=== PATIENT | female | born 1945 | race Hispanic/Latino ===

== ENCOUNTER 2017-12-09 11:34 | Inpatient (IN) | payer MEDICARE ==
[2017-12-09 13:11] LABS: Bilirubin,Urine NEG (Negative); Blood,Urine SM (Negative); Color,Urine Yellow (Yellow); Mucus,Urine FEW /HPF; Urobilinogen,Urine < 2.0 mg/dL (<2.0)
[2017-12-23] MEDS ORDERED: ANCEF/STERILE WATER 2 GM/20 ML IV NR (00:01)
[2017-12-23] MEDS ORDERED: LACTATED RINGERS 1,000 ML IV SCH (06:00)
[2017-12-23] MEDS ORDERED: VERSED IV NR (06:00)
[2017-12-23] MEDS ORDERED: NACL BACTERIOSTATIC INFILTRATI ONE (06:12)
[2017-12-23] MEDS ORDERED: LOPRESSOR IV ONE (07:30)
[2017-12-23] MEDS ORDERED: ZOFRAN ONE (07:33)
[2017-12-23] MEDS ORDERED: XYLOCAINE MPF 2% ONE (07:33)
[2017-12-23] MEDS ORDERED: ZEMURON IV ONE (07:33)
[2017-12-23] MEDS ORDERED: TORADOL ONE (07:33)
--- NOTE | 2017-12-23 07:33 | Anesthesia Consultation ---
Anesthesia Consult and Med Hx Date of service: 12/23/17 - Airway Anesthetic Teeth Evaluation: Good ROM Head & Neck: Adequate Mental/Hyoid Distance: Adequate Mallampati Class: Class II Intubation Access Assessment: Probably Good - Pre-Operative Health Status ASA Pre-Surgery Classification: ASA2 Proposed Anesthetic Plan: General Nerve Block: Femoral - Pulmonary Hx Smoking: No Hx Sleep Apnea: No (MELISSA PRE SCREEN HIGH RISK) - Cardiovascular System Hx Hypertension: Yes (NO MEDS YET) - Central Nervous System Hx Back Pain: Yes - Endocrine Hx Non-Insulin Dependent Diabetes: Yes (no meds) - Other Systems Hx Cancer: No Hx Obesity: Yes (BMI 33.6)
[2017-12-23] MEDS ORDERED: DIPRIVAN 10 MG/ML IV ONE (07:34)
[2017-12-23] MEDS ORDERED: TRANEXAMIC ACID ONE (07:34)
[2017-12-23] MEDS ORDERED: POLYMYXIN B SULFATE IV ONE ×2 (07:34→09:00)
[2017-12-23] MEDS ORDERED: MARCAINE 0.25% INFILTRATI ONE ×2 (07:34→09:00)
[2017-12-23] MEDS ORDERED: MORPHINE ONE (07:34)
[2017-12-23] MEDS ORDERED: XYLOCAINE 1%/ EPI 1:100,000 INFILTRATI ONE (07:34)
[2017-12-23] MEDS ORDERED: SUBLIMAZE ONE ×2 (07:34→07:53)
--- NOTE | 2017-12-23 07:34 | Anesthesia Day of Surgery ---
Anesthesia Day of Surgery - Day of Surgery Patient Examined: Yes Patient H&P Reviewed: Yes Patient is NPO: Yes
[2017-12-23] MEDS ORDERED: NACL 0.9% 100 ML ONE (07:35)
[2017-12-23] MEDS ORDERED: BACITRACIN ONE (07:35)
[2017-12-23] MEDS ORDERED: CLORPACTIN WCS-90 IR ONE ×2 (07:35→09:00)
[2017-12-23] MEDS ORDERED: NACL 0.9% 500 ML 500 ML ONE (07:35)
[2017-12-23] MEDS ORDERED: PEPCID IV ONE (07:53)
[2017-12-23] MEDS ORDERED: MARCAINE 0.5% 30 ML INFILTRATI ONE (07:54)
[2017-12-23] MEDS ORDERED: ZOFRAN IV PRN ×2 (08:42→11:39)
--- NOTE | 2017-12-23 08:42 | Anesthesia Consultation ---
Anesthesia Consult and Med Hx Date of service: 12/23/17 - Airway Anesthetic Teeth Evaluation: Good ROM Head & Neck: Adequate Mental/Hyoid Distance: Adequate Mallampati Class: Class II Intubation Access Assessment: Probably Good - Pulmonary Exam CTA: Yes - Cardiac Exam Cardiac Exam: RRR - Pre-Operative Health Status ASA Pre-Surgery Classification: ASA3 Proposed Anesthetic Plan: General Nerve Block: Adductor Canal Block - Pulmonary Hx Smoking: No Hx Sleep Apnea: No (MELISSA PRE SCREEN HIGH RISK) - Cardiovascular System Hx Hypertension: Yes (NO MEDS YET) - Central Nervous System Hx Back Pain: Yes - Endocrine Hx Non-Insulin Dependent Diabetes: Yes (no meds) - Other Systems Hx Cancer: No Hx Obesity: Yes (BMI 33.6)
--- NOTE | 2017-12-23 08:42 | Anesthesia Day of Surgery ---
Anesthesia Day of Surgery - Day of Surgery Patient Examined: Yes Patient H&P Reviewed: Yes Patient is NPO: Yes
[2017-12-23] MEDS ORDERED: TRANEXAMIC ACID IV ONE (09:00)
[2017-12-23] MEDS ORDERED: NACL 0.9% 500 ML EKOSCLUMEN ONE (09:00)
[2017-12-23] MEDS ORDERED: WATER FOR IRRIG STERILE IR ONE (09:00)
[2017-12-23] MEDS ORDERED: BACITRACIN IR ONE (09:00)
[2017-12-23] MEDS ORDERED: NACL 0.9% IR ONE ×2 (09:00)
[2017-12-23] MEDS ORDERED: MORPHINE IM ONE (09:00)
[2017-12-23] MEDS ORDERED: TORADOL PO ONE (09:00)
[2017-12-23] MEDS ORDERED: ePHEDrine 50 MG/5 ML-0.9% NACL IV ONE (09:20)
[2017-12-23] MEDS ORDERED: LACTATED RINGERS 1,000 ML ONE (09:48)
[2017-12-23] MEDS ORDERED: ROBINUL ONE (11:04)
[2017-12-23] MEDS ORDERED: BLOXIVERZ ONE (11:04)
[2017-12-23] MEDS ORDERED: PHENERGAN PR PRN (11:39)
[2017-12-23] MEDS ORDERED: MILK OF MAGNESIA PO PRN (11:39)
[2017-12-23] MEDS ORDERED: SODIUM CHLORIDE FLUSH SYRINGE 10 ML IV SCH (12:00)
--- NOTE | 2017-12-23 12:22 | Operative Report ---
SURGEON: Kedar Blackwood MD. SETUP OPERATOR: Bernabe Crawford, operative tech. PREOPERATIVE DIAGNOSES: 1.Severe advanced osteoarthritis, left knee joint. 2.Stiff left knee joint. 3.Flexion deformity 40-45 degree left knee joint. POSTOPERATIVE DIAGNOSES: 1.Severe advanced osteoarthritis, left knee joint. 2.Stiff left knee joint. 3.Flexion deformity 40-45 degree left knee joint. PROCEDURES PERFORMED: 1. Complex total knee replacement, left side. 2. Partial synovectomy, left knee joint. BRIEF HISTORY: The patient had a painful left knee, severe advanced osteoarthritis, significant flexion deformity and contracture about 40-45 degree intraoperatively on examination. The patient opted for total knee replacement on the left side. After listening to all risks, benefit, alternative informed consent obtained, brought to the hospital for the above procedure. DETAILS OF THE OPERATIVE REPORT: The patient was taken to the operating room, smooth general endotracheal anesthesia, all the bony prominences were carefully padded, placed supine on the operating table. Thigh tourniquet was placed. Left knee and left lower extremity prepped and draped in sterile fashion. A longitudinal midline incision made over anterior aspect of the knee. Next, after the necessary timeout was performed. Antibiotic given along with the TXA and Esmarch was used. The longitudinal incision made over anterior aspect of the knee, exposing extensive mechanism. Arthrotomy performed. Patella displaced laterally for gross finding revealed severe advanced degenerative arthritis. Significant osteophytes all round the extraocular osteophytes. Significant flexion contracture of the knee about 40 degree or so to 45 degree. Subperiosteal dissection was continued around the proximal medial tibia given the significant varus deformity she had and contracted medial side. Subperiosteal dissection was continued around the proximal medial tibia and necessary soft tissue release was performed to correct the fixed angular deformity. Extensile approach was made to make sure we have better exposure for which made the procedure little bit more complex; however, osteophytes around the knee was removed and around the patella was removed as well for better exposure. The drill was then used to open the femoral canal. Distal intramedullary femoral cutting guide was placed. Distal femur resected 5 degree valgus angle. Epicondylar access apex was determined. Femoral sizing guide was placed, appropriate components selected. Anteroposterior condyles were then resected with oscillating saw. Extramedullary tibial cutting guide was placed, proximal tibia resected perpendicular to the long axis of tibia and minimum bone resection was performed about 8 mm from the proximal lateral tibia and from the good cartilage. Significant contracture on the medial side was noticed along with significant capsular contracture on the back. The osteophytes and the posterior aspect also were present, which were all taken off from the 3/4 inch curved osteotome and a curette and Bovie. Once the osteophytes on the posterior aspect of the conduit was removed posterior capsule release was performed being on the bone. Medial release was then sequentially performed. Deep MCL, medial capsule, semimembranosus had to be released. Given the significant contracture of the anterior superior aspect of the superficial MCL was released subperiosteally as well, which gave us great balancing. We were able to balance the knee in flexion and extension. We noticed that there was tightness in extension still even after doing a significant capsular release, we had to end up to take 2 mm of distal femur and doing again chamfer cuts with cutting block. We balance the knee. Then, in extension and flexion with 11 spacer we had full extension, full flexion, stable throughout range of motion. The tibia was then prepared by tibial reaming and broach system by placing the tibial tray in proper position, proper external rotation. Femur was then placed. A trial femur was then placed and prepared for the box using Connelly and Nephew trial femur using reaming and punch technique. 9 and 11 poly, we had great stability with 11 poly. We had full extension, full flexion, stable throughout range of motion. Full extension, full flexion, stable throughout range of motion, patella tracking central. Patella was prepared with patellar reaming system prepared for three post-patella. Prepatellar thickness 22 mm. Post-patellar thickness 21.5 mm. Synovium around the patella was excised as well. Thorough washing was performed with antibiotic-soaked normal saline followed by normal saline along with Clorpactin irrigation. After normal saline followed by that we cleaned with normal saline and bone surfaces were dried and the cementing of the knee was performed. Tibia was cemented first, set in proper position, proper external rotation, and packed in place. The excess cement was removed. Femur was then cemented in proper position, proper external rotation and packed in place. Excess cement was removed. Patella was then cemented in proper position, compressed in place. Excess cement was removed. Trial liner was then placed. Once the cement was hardened, real tibial articulating surface was implanted and knee again moved through range of motion, again found to be tracking very well and stable throughout range of motion. Tourniquet released. Hemostasis achieved. No active bleeder as such. Pain cocktail injected into the periarticular tissue around the knee. Arthrotomy closed with #2 Quill suture and 0 Vicryl suture combination. Subcutaneous tissue was closed with 0 and 2-0 Vicryl interrupted sutures. Skin was closed with Monocryl. Aquacel dressing done. Chai wrap applied. The patient tolerated procedure well, shifted to recovery room in stable condition. Sponge and needle count was correct. Knee immobilizer applied. JOB# [id number] CHING/DENVER
[2017-12-23] MEDS: DILAUDID IV PRN ×2 (12:32→12:47)
[2017-12-23] MEDS: TORADOL IV PRN ×2 (15:48→21:31)
[2017-12-23] MEDS: LACTATED RINGERS 1,000 ML IV SCH (15:49)
[2017-12-23] MEDS: ceFAZolin 2 GM in NACL 0.9% 100 ML IV SCH ×2 (15:49→23:36)
[2017-12-23] MEDS: NEURONTIN PO SCH ×2 (15:49→21:31)
--- NOTE | 2017-12-23 17:02 | XRay Report ---
FINAL REPORT PROCEDURE: AP and lateral left knee TECHNIQUE: knee radiographs, AP and lateral views. HISTORY: POSTOP will call COMPARISON: No prior studies are available for comparison. FINDINGS: Total left knee prosthesis in place. Prosthetic components are tightly applied to bone. Alignment appears normal. No fracture is seen. Gas and fluid seen in the suprapatellar bursa consistent with recent surgery. Bones are demineralized suggesting osteoporosis. IMPRESSION: Recent placement total knee prosthesis. Prosthetic components tightly applied to bone. Alignment appears normal.
--- NOTE | 2017-12-23 21:01 | Consultation ---
History of Present Illness - Reason for Consult Consult date: 12/23/17 Medical managent Requesting physician: PENG GONZALES - History of Present Illness S/p L TKA Postop doing well.Pain control adequate.No SOB. at bedside and supporive. Past History Past Medical History: arthritis Past Surgical History: total knee replacement Social history: no significant social history, lives with family, full code Family history: no significant family history Medications and Allergies Allergies Allergy/AdvReac Type Severity Reaction Status Date / Time ciprofloxacin [From Cipro] Allergy Rash Verified 12/07/17 10:01 Home Medications Medication Instructions Recorded Confirmed Last Taken Type Celecoxib [celeBREX] 200 mg PO BID 12/07/17 12/23/17 12/23/17 04:30 History diphenhydrAMINE [Benadryl CAP] 25 mg PO QHS 12/07/17 12/07/17 Unknown History Active Meds: Active Medications Acetaminophen/Hydrocodone Bitart (Mitchell 7.5/325) 1 each PO Q6H PRN PRN Reason: Pain, Moderate (4-6) Aspirin (Aspirin) 325 mg PO BID [facility] Cefazolin Sodium (Ancef/Sterile Water 2 Gm/20 Ml) 2 gm IV PREOP NR Stop: 12/23/17 23:00 Celecoxib (Celebrex) 200 mg PO BID [facility] Last Admin: 12/23/17 15:38 Dose: Not Given Gabapentin (Neurontin) 100 mg PO Q8HR [facility] Last Admin: 12/23/17 15:49 Dose: 100 mg Lactated Ringer's (Lactated Ringers) 1,000 mls @ 100 mls/hr IV DIRECT [facility] Last Admin: 12/23/17 15:49 Dose: 100 mls/hr Cefazolin Sodium 2 gm/ Sodium (Chloride) 100 mls @ 200 mls/hr IV Q8H ADARSH Stop: 12/24/17 08:29 Last Admin: 12/23/17 15:49 Dose: 200 mls/hr Ketorolac Tromethamine (Toradol) 15 mg IV Q6H PRN PRN Reason: Pain, Mild (1-3) Last Admin: 12/23/17 15:48 Dose: 15 mg Magnesium Hydroxide (Milk Of Magnesia) 30 ml PO Q4H PRN PRN Reason: Constipation Midazolam HCl (Versed) 2 mg IV PREOP NR Stop: 12/23/17 23:59 Last Admin: 12/23/17 07:58 Dose: 2 mg Ondansetron HCl (Zofran) 4 mg IV Q8H PRN PRN Reason: Nausea And Vomiting Promethazine HCl (Phenergan) 25 mg NH Q6H PRN PRN Reason: Nausea And Vomiting Sodium Chloride (Sodium Chloride Flush Syringe 10 Ml) 10 ml IV PRN ADARSH Review of Systems All systems: negative Exam - Physical Exam Narrative exam: Lying in bed comfortably - Constitutional Vitals: Temp Pulse Resp BP Pulse Ox 98.3 F 82 22 141/77 97 12/23/17 20:53 12/23/17 20:53 12/23/17 20:53 12/23/17 20:53 12/23/17 20:53 General appearance: Present: no acute distress, well-nourished - EENT Eyes: Present: PERRL ENT: hearing intact, clear oral mucosa - Neck Neck: Present: supple, normal ROM - Respiratory Respiratory effort: normal Respiratory: bilateral: CTA - Cardiovascular Heart rate: 78 Rhythm: regular Heart Sounds: Present: S1 & S2. Absent: rub, click - Extremities Extremities: pulses symmetrical, No edema Peripheral Pulses: within normal limits - Abdominal General gastrointestinal: Present: soft, non-tender, non-distended, normal bowel sounds Female genitourinary: Present: normal - Integumentary Integumentary: Present: clear, warm, dry - Musculoskeletal Musculoskeletal: gait normal, strength equal bilaterally - Psychiatric Psychiatric: appropriate mood/affect, intact judgment & insight - Neurologic Neurologic: CNII-XII intact, moves all extremities - Allied Health Allied health notes reviewed: nursing, case management Assessment and Plan - Patient Problems (1) S/P total knee arthroplasty Current Visit: Yes Status: Acute Qualifiers: Laterality: left Qualified Code(s): Z96.652 - Presence of left artificial knee joint Plan to address problem: Cont PT and Pain control (2) Osteoarthritis Current Visit: Yes Status: Chronic Qualifiers: Osteoarthritis location: knee Laterality: bilateral Plan to address problem: Cont Celecoxib (3) DVT prophylaxis Current Visit: Yes Status: Acute Plan to address problem: On SCD's and ASA 325 qd (4) Discharge planning issues Current Visit: Yes Status: Acute Plan to address problem: Possible discharge on 12/25/17 by Hospitalist team if ok with Dr Davila formerly [facility] and CPT machine ordered
[2017-12-23] MEDS: ASPIRIN PO SCH (21:31)
[2017-12-24] MEDS: TORADOL IV PRN ×2 (03:21→09:40)
[2017-12-24] MEDS: LACTATED RINGERS 1,000 ML IV SCH ×2 (03:23→21:33)
[2017-12-24] MEDS: NORCO 7.5/325 PO PRN ×3 (06:13→21:34)
[2017-12-24] MEDS: NEURONTIN PO SCH ×3 (06:14→21:35)
[2017-12-24 07:52] LABS: Basophils # (Auto) 0.1 K/mm3 (0.0-0.1); Basophils % (Auto) 0.6 % (0.0-1.8); Eosinophils # (Auto) 0.1 K/mm3 (0.0-0.4); Hematocrit 34.8 % (30.3-42.9); Hemoglobin 11.6 gm/dl (10.1-14.3); Lymphocytes % (Auto) 10.9 % (13.4-35.0); Mean Corpuscular HGB Conc 33 % (30-34); Mean Corpuscular Hemoglobin 29 pg (28-32); Mean Corpuscular Volume 86 fl (79-97); Monocytes # (Auto) 0.8 K/mm3 (0.0-0.8); Monocytes % (Auto) 8.7 % (0.0-7.3); Platelet Count 166 K/mm3 (140-440); Red Blood Count 4.06 M/mm3 (3.65-5.03); Red Cell Distribution Width 14.4 % (13.2-15.2)
[2017-12-24 08:11] LABS: Alanine Aminotransferase 7 units/L (7-56); Albumin 2.9 g/dL (3.9-5); BUN/Creatinine Ratio 14; Blood Urea Nitrogen 7 mg/dL (7-17); Calcium 8.1 mg/dL (8.4-10.2); Hemolysis Index 11
[2017-12-24] MEDS: ASPIRIN PO SCH ×2 (09:34→21:34)
--- NOTE | 2017-12-24 11:59 | Progress Note ---
Assessment and Plan Assessment and plan: --Status post total knee arthroplasty left Continue postop care, pain management Physical therapy occupational therapy, Rehabilitation --Sinus drainage and congestion; Claritin/Zyrtec when necessary --History of severe osteoarthritis Continue anti-inflammatories and pain medications --DVT prophylaxis; SCDs, aspirin 325 mg by mouth twice a day --Moderate to Severe malnutrition; patient nutrition supplements and supportive care --Obesity; BMI 33.6, counseling diet modification and exercise as tolerated and weight reduction when medically stable --DC planning per case management Home with home health versus rehabilitation Follow PT OT evaluation and recommendations Possible discharge in 1-2 days if stable Plan of care reviewed with the patient, family members at the bedside as well as the nurse History Interval history: Patient seen and examined medical records reviewed Feels better no new complaints Vital signs reviewed, stable Tolerating physical therapy complaints of mild sinus drainage Alert awake oriented 3 not in acute distress Vital signs reviewed Hospitalist Physical - Constitutional Vitals: Temp Pulse Resp BP Pulse Ox 98.5 F 82 18 108/48 94 12/24/17 08:31 12/24/17 08:31 12/24/17 08:31 12/24/17 08:31 12/24/17 08:31 General appearance: Present: no acute distress, well-nourished - EENT Eyes: Present: PERRL, EOM intact - Neck Neck: Present: supple, normal ROM - Respiratory Respiratory effort: normal Respiratory: bilateral: diminished, negative: rales, rhonchi, wheezing - Cardiovascular Rhythm: regular Heart Sounds: Present: S1 & S2 - Extremities Extremities: no ischemia, No edema Peripheral Pulses: within normal limits - Abdominal General gastrointestinal: soft, non-tender, non-distended - Integumentary Integumentary: Present: clear, warm - Psychiatric Psychiatric: appropriate mood/affect, cooperative - Neurologic Neurologic: CNII-XII intact, moves all extremities Results - Labs CBC & Chem 7: 12/24/17 07:01 12/24/17 07:01 Labs: Laboratory Last Values WBC 9.0 K/mm3 (4.5-11.0) 12/24/17 07:01 RBC 4.06 M/mm3 (3.65-5.03) 12/24/17 07:01 Hgb 11.6 gm/dl (10.1-14.3) 12/24/17 07:01 Hct 34.8 % (30.3-42.9) 12/24/17 07:01 MCV 86 fl (79-97) 12/24/17 07:01 MCH 29 pg (28-32) 12/24/17 07:01 MCHC 33 % (30-34) 12/24/17 07:01 RDW 14.4 % (13.2-15.2) 12/24/17 07:01 Plt Count 166 K/mm3 (140-440) 12/24/17 07:01 Lymph % (Auto) 10.9 % (13.4-35.0) L 12/24/17 07:01 Meagher % (Auto) 8.7 % (0.0-7.3) H 12/24/17 07:01 Eos % (Auto) 1.0 % (0.0-4.3) 12/24/17 07:01 Baso % (Auto) 0.6 % (0.0-1.8) 12/24/17 07:01 Lymph # 1.0 K/mm3 (1.2-5.4) L 12/24/17 07:01 Meagher # 0.8 K/mm3 (0.0-0.8) 12/24/17 07:01 Eos # 0.1 K/mm3 (0.0-0.4) 12/24/17 07:01 Baso # 0.1 K/mm3 (0.0-0.1) 12/24/17 07:01 Seg Neutrophils % 78.8 % (40.0-70.0) H 12/24/17 07:01 Seg Neutrophils # 7.1 K/mm3 (1.8-7.7) 12/24/17 07:01 Sodium 137 mmol/L (137-145) 12/24/17 07:01 Potassium 3.8 mmol/L (3.6-5.0) 12/24/17 07:01 Chloride 100.8 mmol/L (98-107) 12/24/17 07:01 Carbon Dioxide 25 mmol/L (22-30) 12/24/17 07:01 Anion Gap 15 mmol/L 12/24/17 07:01 BUN 7 mg/dL (7-17) 12/24/17 07:01 Creatinine 0.5 mg/dL (0.7-1.2) L 12/24/17 07:01 Estimated GFR > 60 ml/min 12/24/17 07:01 BUN/Creatinine Ratio 14 % 12/24/17 07:01 Glucose 187 mg/dL (65-100) H 12/24/17 07:01 Calcium 8.1 mg/dL (8.4-10.2) L 12/24/17 07:01 Total Bilirubin 0.80 mg/dL (0.1-1.2) 12/24/17 07:01 AST 11 units/L (5-40) 12/24/17 07:01 ALT 7 units/L (7-56) 12/24/17 07:01 Alkaline Phosphatase 78 units/L (35-129) 12/24/17 07:01 Total Protein 5.7 g/dL (6.3-8.2) L 12/24/17 07:01 Albumin 2.9 g/dL (3.9-5) L 12/24/17 07:01 Albumin/Globulin Ratio 1.0 % 12/24/17 07:01 Urine Color Yellow (Yellow) 12/09/17 12:20 Urine Turbidity Clear (Clear) 12/09/17 12:20 Urine pH 5.0 (5.0-7.0) 12/09/17 12:20 Ur Specific Amasa 1.017 (1.003-1.030) 12/09/17 12:20 Urine Protein 30 mg/dl mg/dL (Negative) 12/09/17 12:20 Urine Glucose (UA) 150 mg/dL (Negative) 12/09/17 12:20 Urine Ketones Neg mg/dL (Negative) 12/09/17 12:20 Urine Blood Sm (Negative) 12/09/17 12:20 Urine Nitrite Neg (Negative) 12/09/17 12:20 Urine Bilirubin Neg (Negative) 12/09/17 12:20 Urine Urobilinogen < 2.0 mg/dL (<2.0) 12/09/17 12:20 Ur Leukocyte Esterase Neg (Negative) 12/09/17 12:20 Urine WBC (Auto) 2.0 /HPF (0.0-6.0) 12/09/17 12:20 Urine RBC (Auto) 1.0 /HPF (0.0-6.0) 12/09/17 12:20 U Epithel Cells (Auto) 2.0 /HPF (0-13.0) 12/09/17 12:20 Urine Mucus Few /HPF 12/09/17 12:20 Blood Type B POSITIVE 12/23/17 07:00 Antibody Screen Negative 12/23/17 07:00
[2017-12-24] MEDS: ceFAZolin 2 GM in NACL 0.9% 100 ML IV SCH (13:35)
--- NOTE | 2017-12-24 16:09 | Progress Note ---
Subjective Date of service: 12/24/17 Interval history: pod1, s/p tka left doing well, no complaints AVSS, NVI dressing dry pain under control DC and knee instructions given patoent infomred to keep ppillow under knee at all times unless she is bending the knee Dc planning home health Objective Vital signs: Vital Signs - 12hr 12/24/17 12/24/17 12/24/17 05:09 05:10 05:11 Temperature 99.5 F Pulse Rate 87 88 90 Respiratory 18 Rate Blood Pressure 131/50 O2 Sat by Pulse 96 95 96 Oximetry 12/24/17 12/24/17 08:31 12:00 Temperature 98.5 F 99.4 F Pulse Rate 82 91 H Respiratory 18 18 Rate Blood Pressure 108/48 130/67 O2 Sat by Pulse 94 98 Oximetry - Labs CBC & BMP: 12/24/17 07:01 12/24/17 07:01 Labs: Abnormal lab results 12/24/17 12/24/17 Range/Units 07:01 07:01 Lymph % (Auto) 10.9 L (13.4-35.0) % Antelope % (Auto) 8.7 H (0.0-7.3) % Lymph # 1.0 L (1.2-5.4) K/mm3 Seg Neutrophils % 78.8 H (40.0-70.0) % Creatinine 0.5 L (0.7-1.2) mg/dL Glucose 187 H (65-100) mg/dL Calcium 8.1 L (8.4-10.2) mg/dL Total Protein 5.7 L (6.3-8.2) g/dL Albumin 2.9 L (3.9-5) g/dL
[2017-12-25] MEDS: NORCO 7.5/325 PO PRN ×2 (05:58→11:55)
[2017-12-25] MEDS: NEURONTIN PO SCH ×2 (05:59→15:14)
[2017-12-25 06:25] VITALS: BP 137/67
--- NOTE | 2017-12-25 11:43 | Discharge Summary ---
Providers - Providers Date of Admission: 12/23/17 06:27 Date of discharge: 12/25/17 Attending physician: DEDE SWEET 12/23/17 11:39 Consult to Case Management [CONS] Routine Services Needed at Discharge: Gutter Installer Home Health Services DME Equipment Physical Therapy Notified:: CASE MANAGEMENT Consult to Physician [CONS] Routine Comment: COMPLETED - IVONE Consulting Provider: KERRI HOLT Physician Instructions: Reason For Exam: postop TKA AND MEDICAL MANAGEMENT Occupational Therapy Evaluate and Treat [CONS] Routine Comment: Reason For Exam: POSTOP TKA 12/23/17 11:40 Physical Therapy Evaluation and Treat [CONS] Routine Comment: Reason For Exam: POSTOP TKA 12/24/17 07:20 Consult to Case Management [CONS] Routine Services Needed at Discharge: Home Health Services Notified:: PROFESSOR OF LANGUAGES 12/24/17 07:22 Consult to Case Management [CONS] Routine Services Needed at Discharge: Home Health Services Physical Therapy Notified:: PROFESSOR OF LANGUAGEScritical care paramedic physician: NINA VIDALES Hospitalization Condition: Good Hospital course: --Status post total knee arthroplasty left Continue postop care, pain management Physical therapy occupational therapy, Rehabilitation --Sinus drainage and congestion; Claritin/Zyrtec when necessary --History of severe osteoarthritis Continue anti-inflammatories and pain medications --DVT prophylaxis; SCDs, aspirin 325 mg by mouth twice a day --Moderate to Severe malnutrition; patient nutrition supplements and supportive care --Obesity; BMI 33.6, counseling diet modification and exercise as tolerated and weight reduction when medically stable Disposition: [id number]-06 HOME UNDER HOME [facility] Time spent for discharge: 33 min Core Measure Documentation - Palliative Care Palliative Care/ Comfort Measures: Not Applicable - Core Measures Any of the following diagnoses?: none Exam - Constitutional Vitals: Temp Pulse Resp BP Pulse Ox 98.6 F 94 H 20 137/67 97 12/25/17 04:42 12/25/17 04:42 12/25/17 04:42 12/25/17 04:42 12/25/17 04:42 General appearance: Present: no acute distress, well-nourished, obese - EENT Eyes: Present: PERRL, EOM intact - Neck Neck: Present: supple, normal ROM - Respiratory Respiratory effort: normal Respiratory: bilateral: diminished, negative: rales, rhonchi, wheezing - Cardiovascular Rhythm: regular Heart Sounds: Present: S1 & S2 - Extremities Extremities: no ischemia, No edema - Abdominal General gastrointestinal: Present: soft, non-tender, non-distended, normal bowel sounds - Integumentary Integumentary: Present: clear, warm - Musculoskeletal Musculoskeletal: strength equal bilaterally - Psychiatric Psychiatric: appropriate mood/affect, cooperative Plan Activity: advance as tolerated, fall precautions Diet: regular Special Instructions: physical therapy, occupational therapy Additional Instructions: fall precautions Follow up with: NINA VIDALES MD [Primary Care Provider] - 7 Days PENG GONZALES MD [Staff Physician] - 7 Days Prescriptions: HYDROcodone/APAP 7.5-325 [[place] 7.5-325 mg TAB] 1 each PO BID PRN #10 tablet PRN Reason: Pain, Moderate (4-6)
[2017-12-25] MEDS: ASPIRIN PO SCH (11:54)
== END 2017-12-25 15:10 | disposition home health service (06) | DRG 469 ==
LOC: 3A 12-23 06:27 → 3B-SURG 12-23 15:06
PROVIDERS: ADMIT Orthopaedic Surgery; ATTEND Internal Medicine
PROC: 0SRD0J9 Replacement of Left Knee Joint with Synthetic Substitute, Cemented, Open Approach (ICD-10-PCS; principal; 2017-12-23)
PROC: 0SBD0ZZ Excision of Left Knee Joint, Open Approach (ICD-10-PCS; 2017-12-23)
DX: M17.12 Unilateral primary osteoarthritis, left knee (principal); E43 Unspecified severe protein-calorie malnutrition; I10 Essential (primary) hypertension; E11.9 Type 2 diabetes mellitus without complications; E66.9 Obesity, unspecified; J34.89 Other specified disorders of nose and nasal sinuses; M21.262 Flexion deformity, left knee; Z68.33 Body mass index [BMI] 33.0-33.9, adult; Z83.3 Family history of diabetes mellitus; Z82.49 Family history of ischemic heart disease and other diseases of the circulatory system; Z88.1 Allergy status to other antibiotic agents
CPT/HCPCS: 36415; 64450; 80053; 81001; 85025; 86850; 86900; 86901; 87086; 87116; 88304; 88311; 94760; A4217; C1713; C1776; G8987-GO; G8988-GO; J0690; J1170; J1885; J2250; J2270; J2405; J2704; J2710; J3010; J7040; J7120